=== PATIENT | female | born 1985 | race American Indian/Alaskan Native ===

== ENCOUNTER 2017-06-05 18:51 | Outpatient (CLI) | payer MEDICAID, OTHER ==
[2017-06-05 13:01] VITALS: BP 117/73
--- NOTE | 2017-06-05 14:15 | Emergency Department Report ---
ED Female HPI - General Chief complaint: Urogenital-Female Stated complaint: VAGINAL DISCOMFORT Time Seen by Provider: 06/05/17 14:14 Source: patient, family Mode of arrival: Ambulatory Limitations: No Limitations - History of Present Illness Initial comments: Patient reported that she's been having vaginal discharge and irritation. She says she tried [id number] cream but is not effective. Patient denies any back pain, abdominal pain or cramping. Denies any urinary burning frequency urgency. Denies any nausea or vomiting. 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 She says she is planning to go to [place] to get signed up for Medicaid. Patient said the babies move in and she does not have any problem and she was receiving care before she came to [place]. Denies any vaginal bleeding. L1. He denies any fever or chills. She reports that she thinks it the detergent that she is using. Patient says she had STD checks one month ago and everything was normal. She says she's been one partner for 1.5 years and she is not concerned about STD. She reports that she had ultrasound done at 3 months and baby was ok. Complaint: vaginal discharge -: week(s) Severity scale (0 -10): 0 Improves with: none Worsens with: none Are you Now?: Yes (6 months) Last Menstrual Period: 12/05/16 EDC: 09/11/17 Associated Symptoms: vaginal discharge. denies: vaginal bleeding, abdominal pain, nausea/vomiting, fever/chills, headaches, loss of appetite, dysuria, hematuria, rash, seizure, shortness of breath, syncope, weakness - Related Data Sexually active: Yes : 3 Para: 1 A: 1 Allergies Allergy/AdvReac Type Severity Reaction Status Date / Time No Known Allergies Allergy Unverified 06/05/17 13:01 ED Review of Systems ROS: Stated complaint: VAGINAL DISCOMFORT Other details as noted in HPI Comment: All other systems reviewed and negative Constitutional: no symptoms reported Respiratory: no symptoms reported Cardiovascular: denies: chest pain, palpitations, dyspnea on exertion, edema, syncope, paroxysmal nocturnal dyspnea Gastrointestinal: denies: abdominal pain, nausea, vomiting, diarrhea, constipation, hematemesis, melena, hematochezia Genitourinary: discharge. denies: urgency, dysuria, frequency, hematuria, abnormal menses, dyspareunia Musculoskeletal: denies: back pain, joint swelling, arthralgia, myalgia Skin: denies: rash Neurological: denies: headache, weakness, numbness, paresthesias, confusion, vertigo ED Past Medical Hx - Past Medical History Previous Medical History?: Yes Hx Asthma: Yes - Surgical History Past Surgical History?: Yes - Family History Family history: no significant - Social History Smoking Status: Never Smoker Substance Use Type: None ED Physical Exam - General Limitations: No Limitations General appearance: alert, in no apparent distress - Head Head exam: Present: atraumatic, normocephalic, normal inspection - Eye Eye exam: Present: normal appearance, PERRL, EOMI Pupils: Present: normal accommodation - ENT ENT exam: Present: normal exam, normal orophraynx, mucous membranes moist - Neck Neck exam: Present: normal inspection, full ROM. Absent: tenderness, meningismus, lymphadenopathy - Respiratory Respiratory exam: Present: normal lung sounds bilaterally. Absent: respiratory distress, chest wall tenderness - Cardiovascular Cardiovascular Exam: Present: regular rate, normal rhythm, normal heart sounds. Absent: systolic murmur, diastolic murmur - GI/Abdominal GI/Abdominal exam: Present: soft, normal bowel sounds. Absent: distended, tenderness, guarding, rebound, rigid, mass, bruit, pulsatile mass, hernia - External exam: Present: normal external exam. Absent: erythema, swelling, lesions, lacerations, ecchymosis, bleeding Speculum exam: Present: normal speculum exam, vaginal discharge, cervical discharge. Absent: erythema, vaginal bleeding, foreign body, tissue, laceration Bi-manual exam: Present: normal bi-manual exam, uterine enlargement. Absent: cervical motion tendernes, adnexal tenderness, adnexal mass, uterine tenderness - Expanded Exam Expanded Female exam: Absent: vaginal laceration, tissue present in vagina, herpetic lesions, vulvar erythema, vulvar tenderness, foreign body External exam: Present: normal Manual exam: Present: station Amniotic fluid: Present: none Speculum exam: Present: cervical OS closed, vaginal discharge. Absent: vaginal bleeding - Extremities Exam Extremities exam: Present: normal inspection, full ROM, normal capillary refill , other (no clubbing, cyanosis or edema. +2 pulses in all extremity no neurovascular compromise). Absent: tenderness, pedal edema, joint swelling, calf tenderness - Back Exam Back exam: Present: normal inspection, full ROM, other (patient ambulated without any difficulties). Absent: tenderness, CVA tenderness (R), CVA tenderness (L), muscle spasm, paraspinal tenderness, vertebral tenderness, rash noted - Neurological Exam Neurological exam: Present: alert, oriented X3, normal gait, reflexes normal. Absent: motor sensory deficit - Psychiatric Psychiatric exam: Present: normal affect, normal mood - Skin Skin exam: Present: warm, dry, intact, normal color. Absent: rash ED Course Vital Signs 06/05/17 12:58 Temperature 98.2 F Pulse Rate 100 H Respiratory 18 Rate Blood Pressure 117/73 O2 Sat by Pulse 100 Oximetry heart tone is 1 68 bpm. - Reevaluation(s) Reevaluation #1: 06/05/17 18:43 Patient with urinary tract infection, wet prep revealed no cells, no trichomoniasis and positive yeast. Patient orally hydrated in emergency room and tolerated well. Patient discharged from the emergency room to labor and delivery to be treated by [employer] doctor who is Dr. Edilia Mcpherson. Patient physically brought to labor and delivery by ED staff. They are aware that patient has urinary tract infection and positive for yeast. Gonorrhea and chlamydia pending. Patient had uneventful ED stay. She had no episode of abdominal pain, vaginal bleeding or back pain in emergency room. ED Medical Decision Making - Lab Data Lab Results 06/05/17 06/05/17 Range/Units 14:24 15:00 HCG, Quant 20823 H (0-4) mIU/mL Urine Color Yellow (Yellow) Urine Turbidity Clear (Clear) Urine pH 6.0 (5.0-7.0) Ur Specific [place] 1.016 (1.003-1.030) Urine Protein <15 mg/dl (Negative) mg/dL Urine Glucose (UA) Neg (Negative) mg/dL Urine Ketones Tr (Negative) mg/dL Urine Blood Sm (Negative) Urine Nitrite Pos (Negative) Urine Bilirubin Neg (Negative) Urine Urobilinogen < 2.0 (<2.0) mg/dL Ur Leukocyte Esterase Mod (Negative) Urine WBC (Auto) 9.0 H (0.0-6.0) /HPF Urine RBC (Auto) 13.0 (0.0-6.0) /HPF U Epithel Cells (Auto) 1.0 (0-13.0) /HPF Urine Bacteria (Auto) 1+ (Negative) /HPF Urine Mucus Few /HPF Urine culture pending Wet prep positive yeast, negative for Trichomonas or bacterial vaginosis Gonorrhea and Chlamydia test is pending - Medical Decision Making ED course: She presented to the emergency room with complaint of vaginal discharge for a few weeks that she's been treated with [id number] yeast infection. Patient is confident that she does not have STD because she got One month ago and she is with the same partner. Patient is also 6 months and she says she is new to [place] and had previous care but she does not have any insurance in [place] so she plans to go to [place]. Patient has no complaints of vaginal bleeding, abdominal or back pain. Patient said her babies move in and heart tone obtained and stable. Refer to vital signs section for details. She says she is just here because she's been tried over- the-counter medication for use infection and she is very itchy and would like something else. Patient does not have [employer] S[employer]ERK. Urinalysis positive for urinary tract infection, she has trace ketone and was orally hydrated in emergency room without any episode of nausea or vomiting. Wet prep positive for yeast, negative for Trichomonas or bacterial vaginosis. Gonorrhea and chlamydia is pending. I spoke with Dr. Martini who wants patient to go to labor and delivery as she is having vaginal drainage which could be spontaneous membrane rupture and she will need to be examined by [employer]. I discussed with patient that she will need to be taken to the labor and delivery unit. Information given to labor and delivery the patient does have a positive urinary tract infection and positive yeast infection and she will need to be treated. Patient discharged from the emergency room and taken to labor and delivery. Critical care attestation.: If time is entered above; I have spent that time in minutes in the direct care of this critically ill patient, excluding procedure time. ED Disposition Clinical Impression: Yeast infection of the vagina Acute cystitis during Qualifiers: Trimester: second trimester Qualified Code(s): O23.12 - Infections of bladder in , second trimester Vaginal discharge during Qualifiers: Trimester: second trimester Qualified Code(s): O26.892 - Other specified related conditions, second trimester; N89.8 - Other specified noninflammatory disorders of vagina; N89.8 - Other specified noninflammatory disorders of vagina Disposition: DC-01 TO HOME OR SELFCARE Is pt being admited?: No Does the pt Need Aspirin: No Condition: Stable Instructions: Vaginitis (ED), Urinary Tract Infection in Women (ED) Additional Instructions: Patient escorted to labor and delivery where she will be seen by [employer] and treated for urinary tract infection and yeast infection. Patient is stable and has no complaints. Referrals: PRIMARY CARE,MD [Primary Care Provider] - 3-5 Days labor and delivery, [facility] [Other] - 3-5 Days (Patient will be treated for yeast infection and urinary tract infection and labor and delivery.)
[2017-06-05 15:15] LABS: Bacteria,Urine 1+ /HPF (Negative); Bilirubin,Urine NEG (Negative); Blood,Urine SM (Negative); Ketones,Urine TR mg/dL (Negative); Leukocyte Esterase,Urine MOD (Negative); Mucus,Urine FEW /HPF; Nitrite,Urine POS (Negative); Protein,Urine <15 mg/dL mg/dL (Negative); Urobilinogen,Urine < 2.0 mg/dL (<2.0)
[2017-06-05] MEDS ORDERED: LACTATED RINGERS 500 ML IV ONE (19:05)
[2017-06-05] MEDS ORDERED: DIFLUCAN PO ONE (19:18)
== END 2017-06-05 19:50 | disposition home or self-care (01) ==
LOC: TRG 18:51 → EDSTATUS 18:54 → TRG 19:50
DX: O42.92 Full-term premature rupture of membranes, unspecified as to length of time between rupture and onset of labor (principal); O26.892 Other specified pregnancy related conditions, second trimester; Z3A.25 25 weeks gestation of pregnancy
CPT/HCPCS: 36415; 81001; 84702; 87076; 87086; 87186; 87210; 87591

== ENCOUNTER 2017-06-30 09:58 | Outpatient (CLI) | payer MEDICAID, OTHER ==
[2017-06-30 13:50] VITALS: BP 115/70
[2017-06-30] MEDS ORDERED: LACTATED RINGERS 500 ML IV ONE (14:00)
[2017-06-30 14:06] LABS: Bacteria,Urine 4+ /HPF (Negative); Bilirubin,Urine NEG (Negative); Blood,Urine SM (Negative); Color,Urine Yellow (Yellow); Mucus,Urine FEW /HPF; Nitrite,Urine NEG (Negative); Protein,Urine <15 mg/dL mg/dL (Negative); Urobilinogen,Urine < 2.0 mg/dL (<2.0)
[2017-06-30 16:27] LABS: Basophils # (Auto) 0.1 K/mm3 (0.0-0.1); Basophils % (Auto) 0.8 % (0.0-1.8); Eosinophils # (Auto) 0.1 K/mm3 (0.0-0.4); Eosinophils % (Auto) 0.8 % (0.0-4.3); Hematocrit 36.9 % (30.3-42.9); Hemoglobin 12.6 gm/dl (10.1-14.3); Lymphocytes # (Auto) 1.5 K/mm3 (1.2-5.4); Lymphocytes % (Auto) 18.5 % (13.4-35.0); Mean Corpuscular HGB Conc 34 % (30-34); Mean Corpuscular Hemoglobin 34 pg (28-32); Mean Corpuscular Volume 100 fl (79-97); Monocytes # (Auto) 0.7 K/mm3 (0.0-0.8); Platelet Count 224 K/mm3 (140-440)
--- NOTE | 2017-07-01 09:51 | Ultrasound Report ---
OBSTETRICAL ULTRASOUND: 06/30/17 13:36:00 CLINICAL:No care. COMPARISON:None. Gestation: Lord Position: Cephalic Amniotic Fluid: Normal SEPIDEH = 12.7 cm Placenta: Anterior and right lateral. Placental Grade: II Heart Rate: 147 BPM Cervical length: 3.1 cm translabial technique (Normal > 3 cm) NEUROANATOMY VISUALIZED: Choroid Plexus Cisterna Magnum Cerebellum Lateral Ventricle ANATOMY VISUALIZED: Stomach Kidneys Bladder Diaphragm 4 Chamber Heart Heart 3 Vessel Cord Abd. Cord Insert SPINE VISUALIZED: Longitudinal Transverse Limited spine due to position BPD: 7.3 cm = 29 w 1 d HC: 27.4 cm = 29 w 6 d AC: 23.8 cm = 28 w 0 d FL: 6.2 cm = 32 w 0 d HC/AC Ratio: 1.2 Cephalic Index: 78 Estimated Weight: 1438 grams IMPRESSION: Single living acute or fetus at 29 weeks, 6 days based on ultrasound. EDC based on ultrasound is 09/09/17 and EDC based on clinical dating is 09/16/17. Limited evaluation of the spine due to lie.
== END 2017-06-30 16:55 | disposition home or self-care (01) ==
LOC: EDSTATUS 12:00 → TRG 12:07
PROVIDERS: ATTEND Obstetrics & Gynecology
DX: O26.893 Other specified pregnancy related conditions, third trimester (principal); R10.9 Unspecified abdominal pain; Z3A.29 29 weeks gestation of pregnancy
CPT/HCPCS: 36415; 59025; 76805; 81001; 85025; 86592; 86706; 86762; 87806; 96360; J7120